=== PATIENT | male | born 1980 | race Caucasian/White ===

== ENCOUNTER 2017-01-18 11:48 | Emergency (ER) | payer BC ==
[~2017-01-18] VITALS: Ht 167.6 cm; Wt 95.3 kg
[~2017-01-18 11:48] MED LIST: ATENOLOL25 MG PO; HYDROCODONE BIT1 T11 PO; HYDRODIURIL25 MG PO; NAPROSYN500 MG PO
[2017-01-18 12:40] LABS: BASO % 0.7 % (0.0-1.0); EOS # 0.1 10*3/uL (0.0-0.4); EOS % 1.7 % (1.0-4.0); HEMATOCRIT 45.7 % (42.0-52.0); HEMOGLOBIN 16.1 g/dl (14.0-18.0); LYMPH # 1.2 10*3/uL (1.3-4.4); LYMPH % 29.8 % (27.0-41.0); MEAN CELL VOLUME 90.3 fl (80.0-94.0); MEAN CORPUSCULAR HGB 31.8 pg (27.0-31.0); MEAN CORPUSCULAR HGB CONC 35.2 g/dl (33.0-37.0); MEAN PLATELET VOLUME 8.5 fl (9.6-12.3); MONO # 0.4 10*3/uL (0.1-1.0); MONO % 10.3 % (3.0-9.0); NEUT # 2.3 10*3/uL (2.3-7.9); NEUT % 57.3 % (47.0-73.0); PLATELET COUNT AUTOMATED 285 10*3/uL (130-400); RED BLOOD COUNT 5.06 10*6/uL (4.50-5.90); RED CELL DISTRI WIDTH 11.8 % (0-14.5); WHITE BLOOD COUNT 4.1 10*3/uL (4.8-10.8)
[2017-01-18] MEDS ORDERED: MEDROL DOSEPAK4 MG PO (13:38)
[2017-01-18] MEDS ORDERED: NORCO 5-325 TA1 EACH PO (13:38)
== END 2017-01-18 15:08 | disposition home or self-care (01) ==
LOC: ED 11:48
PROVIDERS: Physician Assistant
DX: M25.472 Effusion, left ankle (principal); M25.572 Pain in left ankle and joints of left foot; E79.0 Hyperuricemia without signs of inflammatory arthritis and tophaceous disease; Z79.899 Other long term (current) drug therapy

== ENCOUNTER 2018-03-03 14:31 | Emergency (ER) | payer OTHER, BC ==
[~2018-03-03] VITALS: Ht 167.6 cm; Wt 93.0 kg
[~2018-03-03 14:31] MED LIST changes: +MEDROL DOSEPAK4 MG PO; +NORCO 5-325 TA1 EACH PO
[2018-03-03] MEDS ORDERED: NAPROSYN500 MG PO (14:44)
[2018-03-03] MEDS ORDERED: CHLORZOXAZONE500 M2 PO (14:44)
== END 2018-03-03 16:36 | disposition home or self-care (01) ==
LOC: ED 14:31
DX: S39.012A Strain of muscle, fascia and tendon of lower back, initial encounter (principal); R03.0 Elevated blood-pressure reading, without diagnosis of hypertension; Z79.899 Other long term (current) drug therapy; X50.0XXA Overexertion from strenuous movement or load, initial encounter; Y93.89 Activity, other specified; Y92.69 Other specified industrial and construction area as the place of occurrence of the external cause; Y99.8 Other external cause status

== ENCOUNTER → 2021-01-15 | Outpatient (CLI) | payer BC ==
[~2021-01-15] MED LIST changes: +CHLORZOXAZONE500 M2 PO
== END | disposition home or self-care (01) ==
LOC: COVID19 16:13
PROVIDERS: ATTEND Internal Medicine
DX: Z11.52 Encounter for screening for COVID-19 (principal)

== ENCOUNTER → 2021-05-03 | Outpatient (CLI) | payer BC | END | disposition home or self-care (01) | LOC: COVID19 15:53 | PROVIDERS: ATTEND Internal Medicine | DX: U07.1 COVID-19 (principal) ==

== ENCOUNTER 2023-12-15 00:34 | Emergency (ER) | payer BC ==
[~2023-12-15] VITALS: Ht 167.6 cm; Wt 85.9 kg
[~2023-12-15 00:34] MED LIST changes: +ALLOPURINOL300 MG PO; +CLONIDINE HCL0.2 MG PO
[2023-12-15 00:56] LABS: BASO # 0.1 10*3/uL (0.0-0.1); BASO % 0.6 % (0.0-1.0); EOS # 0.1 10*3/uL (0.0-0.4); EOS % 1.6 % (1.0-4.0); HEMATOCRIT 43.4 % (42.0-52.0); LYMPH # 2.6 10*3/uL (1.3-4.4); LYMPH % 31.9 % (27.0-41.0); MEAN CELL VOLUME 89.7 fl (80.0-94.0); MEAN CORPUSCULAR HGB 30.2 pg (27.0-31.0); MEAN CORPUSCULAR HGB CONC 33.6 g/dl (33.0-37.0); MEAN PLATELET VOLUME 8.8 fl (9.6-12.3); MONO # 0.7 10*3/uL (0.1-1.0); MONO % 8.8 % (3.0-9.0); NEUT # 4.5 10*3/uL (2.3-7.9); NEUT % 56.8 % (47.0-73.0); PLATELET COUNT AUTOMATED 193 10*3/uL (130-400); RED BLOOD COUNT 4.84 10*6/uL (4.50-5.90); RED CELL DISTRI WIDTH 13.1 % (0-14.5)
[2023-12-15 01:07] LABS: ACT PARTIAL THROMBO TIME 29.3 SECONDS (20.0-32.1)
[2023-12-15 01:17] LABS: ALKALINE PHOSPHATASE 102 U/L (46-116); BUN 15 mg/dl (9-23); CHLORIDE 105 mmol/L (98-107); LIPASE 60 U/L (12-53); POTASSIUM 3.3 mmol/L (3.4-5.1); SGPT/ALT 24 U/L (5-49); TOTAL PROTEIN 7.1 gm/dL (6.0-8.0)
[2023-12-15] MEDS ORDERED: SODIUM CHLORIDE 0.9% 1,000 ML IV ONE (01:40)
[2023-12-15] MEDS ORDERED: NATURE'S BLEND100 M2 PO (01:51)
[2023-12-15] MEDS ORDERED: ASPIRIN ADULT L81 M1 PO (01:51)
[2023-12-15] MEDS ORDERED: PANTOPRAZOLE SO40 MG PO (01:52)
[2023-12-15] MEDS ORDERED: NATURE'S BLEND F1 MG PO (01:52)
[2023-12-15] MEDS ORDERED: SENEXON-S 50-81 EACH PO (01:53)
[2023-12-15] MEDS ORDERED: FEROSUL325 M1 PO (01:53)
[2023-12-15] MEDS ORDERED: ATORVASTATIN CA40 M1 PO (01:57)
[2023-12-15] MEDS ORDERED: METOPROLOL TA37.5 MG PO (01:57)
[2023-12-15] MEDS ORDERED: ESCITALOPRAM OX10 MG PO (01:58)
[2023-12-15] MEDS ORDERED: IMDUR SA30 MG PO (01:59)
[2023-12-15] MEDS ORDERED: CLOPIDOGREL75 MG PO (01:59)
[2023-12-15] MEDS ORDERED: ATARAX,VISTARIL50 MG PO (02:00)
[2023-12-15] MEDS ORDERED: Ondansetron Hydrochloride 4 MG/2 ML VIAL IV ONE (02:55)
== END 2023-12-15 04:35 | disposition left against medical advice (07) ==
LOC: ED
PROVIDERS: Internal Medicine
DX: R07.89 Other chest pain (principal); E07.89 Other specified disorders of thyroid; E87.6 Hypokalemia; E83.42 Hypomagnesemia; M54.50 Low back pain, unspecified; I25.2 Old myocardial infarction; Z79.899 Other long term (current) drug therapy; Z79.82 Long term (current) use of aspirin; Z98.890 Other specified postprocedural states; Z53.29 Procedure and treatment not carried out because of patient's decision for other reasons

== ENCOUNTER 2023-12-20 14:50 | Emergency (ER) | payer BC ==
[~2023-12-20] VITALS: Ht 167.6 cm; Wt 99.4 kg
[~2023-12-20 14:50] MED LIST changes: +ASPIRIN ADULT L81 M1 PO; +ATARAX,VISTARIL50 MG PO; +ATORVASTATIN CA40 M1 PO; +CLOPIDOGREL75 MG PO; +ESCITALOPRAM OX10 MG PO; +FEROSUL325 M1 PO; +IMDUR SA30 MG PO; +METOPROLOL TA37.5 MG PO; +NATURE'S BLEND F1 MG PO; +NATURE'S BLEND100 M2 PO; +PANTOPRAZOLE SO40 MG PO; +SENEXON-S 50-81 EACH PO
[2023-12-20] MEDS ORDERED: SODIUM CHLORIDE 0.9% 1,000 ML IV ONE (15:35)
[2023-12-20] MEDS ORDERED: IOHEXOL 300 MG/ML 100 ML VIAL IV ONE (15:50)
[2023-12-20 16:02] LABS: BASO % 0.3 % (0.0-1.0); EOS # 0.1 10*3/uL (0.0-0.4); EOS % 0.5 % (1.0-4.0); HEMATOCRIT 40.2 % (42.0-52.0); LYMPH # 0.8 10*3/uL (1.3-4.4); LYMPH % 8.7 % (27.0-41.0); MEAN CELL VOLUME 86.1 fl (80.0-94.0); MEAN CORPUSCULAR HGB 30.6 pg (27.0-31.0); MEAN CORPUSCULAR HGB CONC 35.6 g/dl (33.0-37.0); MEAN PLATELET VOLUME 9.9 fl (9.6-12.3); MONO # 0.9 10*3/uL (0.1-1.0); NEUT # 7.5 10*3/uL (2.3-7.9); NEUT % 80.2 % (47.0-73.0); PLATELET COUNT AUTOMATED 243 10*3/uL (130-400); RED BLOOD COUNT 4.67 10*6/uL (4.50-5.90); RED CELL DISTRI WIDTH 13.2 % (0-14.5); WHITE BLOOD COUNT 9.3 10*3/uL (4.8-10.8)
[2023-12-20 16:16] LABS: BILIRUBIN 2+ (Negative); BLOOD Negative (Negative); CLARITY Clear (Clear); COLOR Dark Yellow (Yellow); GLUCOSE Negative (Negative); KETONE 2+ (Negative); LEUKO ESTERASE Trace (Negative); NITRITE Negative (Negative); SPECIFIC GRAVITY >= 1.030 (1.001-1.030)
[2023-12-20 16:24] LABS: ALKALINE PHOSPHATASE 122 U/L (46-116); BUN 14 mg/dl (9-23); CHLORIDE 100 mmol/L (98-107); LIPASE 41 U/L (12-53); POTASSIUM 3.1 mmol/L (3.4-5.1); SGPT/ALT 28 U/L (5-49); TOTAL PROTEIN 7.2 gm/dL (6.0-8.0)
[2023-12-20 16:32] LABS: EPITHELIAL CELLS 0-2; MUCOUS 1+
[2023-12-20] MEDS ORDERED: POTASSIUM CHLORIDE 20 MEQ TAB PO ONE (16:35)
[2023-12-20] MEDS ORDERED: ESMOLOL HCL IN STERILE WATER 250 ML IV SCH (18:15)
== END 2023-12-20 18:40 | disposition short-term general hospital (02) ==
LOC: ED 14:50
PROVIDERS: Nurse Practitioner Family
DX: I71.60 Thoracoabdominal aortic aneurysm, without rupture, unspecified (principal); Z20.822 Contact with and (suspected) exposure to COVID-19; M54.50 Low back pain, unspecified; Z79.899 Other long term (current) drug therapy; Z79.82 Long term (current) use of aspirin; Z98.890 Other specified postprocedural states